=== PATIENT | female | born 2000 | race Caucasian/White ===

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

== ENCOUNTER 2018-07-04 14:31 | Emergency (ER) | payer BC ==
[2018-07-04 14:42] VITALS: RESP 18
[2018-07-04 15:21] LABS: Basophils # (A) 0.1 k/uL (0-0.2); Basophils % (A) 1 %; Eosinophils # (A) 0.3 k/uL (0-0.7); Eosinophils % (A) 4 %; HCT 39.6 % (34.0-46.0); HGB 13.3 gm/dL (11.4-16.0); Lymphocytes # (A) 1.9 k/uL (1.0-4.8); Lymphocytes % (A) 25 %; MCH 29.8 pg (25.0-35.0); MCHC 33.7 g/dL (31.0-37.0); MCV 88.5 fL (80.0-100.0); Monocytes # (A) 0.3 k/uL (0-1.0); Monocytes % (A) 5 %; Neutrophils # (A) 4.8 k/uL (1.3-7.7); Neutrophils % (A) 64 %; Platelet Count 270 k/uL (150-450); RBC 4.48 m/uL (3.80-5.40); RDW 13.1 % (11.5-15.5); WBC 7.5 k/uL (4.0-11.0)
[2018-07-04 15:29] LABS: Anion Gap 6 mmol/L; Blood Urea Nitrogen 13 mg/dL (7-17); Carbon Dioxide 26 mmol/L (22-30); Chloride 106 mmol/L (98-107); Glucose 76 mg/dL (74-99); Potassium 3.9 mmol/L (3.5-5.1); Sodium 138 mmol/L (137-145)
[2018-07-04 15:46] LABS: HCG,Quantitative Serum 271.1 mIU/mL
--- NOTE | 2018-07-04 15:58 | US ---
EXAMINATION TYPE: Transabdominal DATE OF EXAM: 07/04/2018 3:41 PM COMPARISON: NONE CLINICAL HISTORY: pain. Pt states cramping EXAM PERFORMED: TA and TV, endovaginal scanning performed for better evaluation of the uterus EXAM MEASUREMENTS: GESTATIONAL AGE / DATING Physician Established: No yet established Dates by LMP: (5 weeks/3 days) EDC: 03/03/2019 Dates by First Scan: No prior Dates by Current Scan for: Unable to date by today's study/ too early Correlate and follow-up as indicated. MATERNAL ANATOMY Uterus: 8.3 x 4.5 x 4.4 cm Right Ovary: 3.6 x 1.7 x 3.0 cm Left Ovary: 2.9 x 1.6 x 2.7 cm Post CDS / Adnexa: Small amount of free fluid anterior cul de sac Presence of corpus luteal cyst: Left Ovary= 1.6 x 1.4 x 1.6 cm Presence of subchorionic bleed: No GESTATION / SURVEY MSD: 0.2 cm Too early to calculate dates Date of LMP: 05/27/2018 Beta HcG (if available): Not available at this time IMPRESSION: Small cystic focus present along the endometrium. Findings may represent an early .
[2018-07-04 16:58] LABS: Appearance,Urine Cloudy (Clear); Bilirubin,Urine Negative (Negative); Blood,Urine Negative (Negative); Color,Urine Yellow; Glucose,Urine (UA) Negative (Negative); Ketones,Urine Negative (Negative); Leukocyte Esterase,Urine Small (Negative); Mucus,Urine Rare /hpf; Nitrite,Urine Negative (Negative); PH, Urine 6.5 (5.0-8.0); Protein,Urine Negative (Negative); Specific Gravity,Urine 1.024 (1.001-1.035); Squamous Epithelial Cell,Urine 16 /hpf (0-4); Urobilinogen,Urine <2.0 mg/dL (<2.0); WBC,Urine 4 /hpf (0-5)
--- NOTE | 2018-07-04 17:41 | ED ---
Abdominal Pain HPI - General Chief Complaint: Abdominal Pain Stated Complaint: Abd Pain Time Seen by Provider: 07/04/18 14:44 Source: patient Mode of arrival: ambulatory Limitations: no limitations - History of Present Illness Initial Comments: [id number] female presenting today for chief complaint of abdominal cramping. Patient states she, she is the day before. She states she has had cramping for the past 2-3 days. She states this began after taking a Plan B. She states she did not know she was . However had had unprotected sex. Patient denies any vaginal bleeding. She denies any vaginal discharge or pain with sex. Patient denies any fever chills night sweats dysuria or urgency frequency. Patient denies any back pain. Patient states she has had some nausea. She stopped admits to breast tenderness. Remaining review of systems negative. Upon arrival patient appears on the signs of acute distress. LMP mid may. - Related Data Previous Rx's Medication Instructions Recorded Amoxicillin/Potassium Clav 1 tab PO Q12HR #20 tab 11/27/16 [Augmentin 875-125 Tablet] Allergies Allergy/AdvReac Type Severity Reaction Status Date / Time ibuprofen [From Motrin] Allergy Anaphylaxis Verified 07/04/18 14:38 Review of Systems ROS Statement: Those systems with pertinent positive or pertinent negative responses have been documented in the HPI. ROS Other: All systems not noted in ROS Statement are negative. Past Medical History Past Medical History: No Reported History Additional Past Medical History / Comment(s): allergies History of Any Multi-Drug Resistant Organisms: None Reported Past Surgical History: No Surgical Hx Reported Past Psychological History: No Psychological Hx Reported Smoking Status: Former smoker Past Alcohol Use History: Occasional Past Drug Use History: None Reported General Exam - General Exam Comments Initial Comments: General: The patient is awake and alert, in no distress, and does not appear acutely ill. Eye: +3 mm pupils are equal, round and reactive to light, extra-ocular movements are intact. No nystagmus. There is normal conjunctiva bilaterally. No signs of icterus. Ears, nose, mouth and throat: There are moist mucous membranes and no oral lesions. Neck: The neck is supple, there is no tenderness or JVD. Cardiovascular: There is a regular rate and rhythm. No murmur, rub or gallop is appreciated. Respiratory: Lungs are clear to auscultation, respirations are non-labored, breath sounds are equal. No wheezes, stridor, rales, or rhonchi. Gastrointestinal: Soft, non-distended, non-tender abdomen without masses or organomegaly noted. There is no rebound or guarding present. No CVA tenderness. Bowel sounds are unremarkable. Pelvic exam:. No external lesions. [place] well rugated vaginal mucosa. Scant amount of light white discharge. No odor. No adnexal or cervical motion tenderness. Musculoskeletal: Normal ROM, no tenderness. Strength 5/5. Sensation intact. Pulses equal bilaterally 2+. Neurological: A&O x 3. CN II-XII intact, There are no obvious motor or sensory deficits. Coordination appears grossly intact. Speech is normal. Skin: Skin is warm and dry and no rashes or lesions are noted. Psychiatric: Cooperative, appropriate mood & affect, normal judgment. Limitations: no limitations Course Vital Signs 07/04/18 07/04/18 14:38 18:11 Temperature 98.7 F 98.0 F Pulse Rate 66 69 Respiratory 18 18 Rate Blood Pressure 120/77 118/73 O2 Sat by Pulse 100 99 Oximetry Medical Decision Making - Medical Decision Making 17 year female presenting for abdominal cramping and . Ultrasound revealed no signs of intrauterine at this time there is area suspicious for within the endometrium however this is not a confirmed IUP, however there is no evidence concerning for ectopic at this time. Patient hCG correlates with early . Unable to exclude ectopic at this time. However patient does not have any severe abdominal pain she states is mild cramping and there is no adnexal tenderness on examination. Patient has no vaginal bleeding. Patient's cramping began after taking Plan B. This time feel this is a threatened miscarriage. I discussed these findings with patient. I discussed how we cannot rule out ectopic at this time and the patient must repeat hCG and follow-up with DEVELOPMENTAL THERAPIST. Patient is to immediately return to emergency department for any increasing pain, vaginal bleeding. She verbalized understanding of the importance of strict return parameters. Patient was provided prescription for repeat hCG. Patient was given DEVELOPMENTAL THERAPIST follow-up. I discussed the case by attending provider Dr. Dyer was agreeable care plan as well as discharge. - Lab Data Result diagrams: 07/04/18 15:06 07/04/18 15:06 Lab Results 07/04/18 07/04/18 07/04/18 Range/Units 15:06 15:06 15:06 WBC 7.5 (4.0-11.0) k/uL RBC 4.48 (3.80-5.40) m/uL Hgb 13.3 (11.4-16.0) gm/dL Hct 39.6 (34.0-46.0) % MCV 88.5 (80.0-100.0) fL MCH 29.8 (25.0-35.0) pg MCHC 33.7 (31.0-37.0) g/dL RDW 13.1 (11.5-15.5) % Plt Count 270 (150-450) k/uL Neutrophils % 64 % Lymphocytes % 25 % Monocytes % 5 % Eosinophils % 4 % Basophils % 1 % Neutrophils # 4.8 (1.3-7.7) k/uL Lymphocytes # 1.9 (1.0-4.8) k/uL Monocytes # 0.3 (0-1.0) k/uL Eosinophils # 0.3 (0-0.7) k/uL Basophils # 0.1 (0-0.2) k/uL Sodium 138 (137-145) mmol/L Potassium 3.9 (3.5-5.1) mmol/L Chloride 106 (98-107) mmol/L Carbon Dioxide 26 (22-30) mmol/L Anion Gap 6 mmol/L BUN 13 (7-17) mg/dL Creatinine 0.64 (0.52-1.04) mg/dL Est GFR (CKD-EPI)AfAm >90 (>60 ml/min/1.73 sqM) Est GFR (CKD-EPI)NonAf >90 (>60 ml/min/1.73 sqM) Glucose 76 (74-99) mg/dL Calcium 10.0 (8.4-10.2) mg/dL HCG, Quant 271.1 mIU/mL Urine Color Urine Appearance (Clear) Urine pH (5.0-8.0) Ur Specific [place] (1.001-1.035) Urine Protein (Negative) Urine Glucose (UA) (Negative) Urine Ketones (Negative) Urine Blood (Negative) Urine Nitrite (Negative) Urine Bilirubin (Negative) Urine Urobilinogen (<2.0) mg/dL Ur Leukocyte Esterase (Negative) Urine WBC (0-5) /hpf Ur Squamous Epith Cells (0-4) /hpf Urine Mucus (None) /hpf Chlamydia Source Chlamydia DNA (PCR) (Neg,Equiv) N. gonorrhoeae Source N.gonorrhoeae DNA Probe (Neg,Equiv) Trichomonas Ag (Rapid) (Negative) Blood Type A Positive Blood Type Recheck No 07/04/18 07/04/18 07/04/18 Range/Units 15:06 15:06 15:06 WBC (4.0-11.0) k/uL RBC (3.80-5.40) m/uL Hgb (11.4-16.0) gm/dL Hct (34.0-46.0) % MCV (80.0-100.0) fL MCH (25.0-35.0) pg MCHC (31.0-37.0) g/dL RDW (11.5-15.5) % Plt Count (150-450) k/uL Neutrophils % % Lymphocytes % % Monocytes % % Eosinophils % % Basophils % % Neutrophils # (1.3-7.7) k/uL Lymphocytes # (1.0-4.8) k/uL Monocytes # (0-1.0) k/uL Eosinophils # (0-0.7) k/uL Basophils # (0-0.2) k/uL Sodium (137-145) mmol/L Potassium (3.5-5.1) mmol/L Chloride (98-107) mmol/L Carbon Dioxide (22-30) mmol/L Anion Gap mmol/L BUN (7-17) mg/dL Creatinine (0.52-1.04) mg/dL Est GFR (CKD-EPI)AfAm (>60 ml/min/1.73 sqM) Est GFR (CKD-EPI)NonAf (>60 ml/min/1.73 sqM) Glucose (74-99) mg/dL Calcium (8.4-10.2) mg/dL HCG, Quant mIU/mL Urine Color Yellow Urine Appearance Cloudy H (Clear) Urine pH 6.5 (5.0-8.0) Ur Specific [place] 1.024 (1.001-1.035) Urine Protein Negative (Negative) Urine Glucose (UA) Negative (Negative) Urine Ketones Negative (Negative) Urine Blood Negative (Negative) Urine Nitrite Negative (Negative) Urine Bilirubin Negative (Negative) Urine Urobilinogen <2.0 (<2.0) mg/dL Ur Leukocyte Esterase Small H (Negative) Urine WBC 4 (0-5) /hpf Ur Squamous Epith Cells 16 H (0-4) /hpf Urine Mucus Rare H (None) /hpf Chlamydia Source Vagina Chlamydia DNA (PCR) Negative (Neg,Equiv) N. gonorrhoeae Source Vagina N.gonorrhoeae DNA Probe Negative (Neg,Equiv) Trichomonas Ag (Rapid) Negative (Negative) Blood Type Blood Type Recheck Disposition Clinical Impression: Abdominal cramping affecting , Early stage of Disposition: HOME SELF-CARE Condition: Good Instructions (If sedation given, give patient instructions): Threatened Miscarriage (ED) Additional Instructions: Please use medication as discussed. Please follow-up with DEVELOPMENTAL THERAPIST within the next 1-2 weeks. Immediately return to the emergency department for worsening pain. Please repeat hCG as discussed in 2 days. Please return to emergency ro om if the symptoms increase or worsen or for any other concerns. Is patient prescribed a controlled substance at d/c from ED?: No Referrals: None,Stated [Primary Care Provider] - 1-2 days Ángel Love DO [Doctor of Osteopathic Medicine] - 1-2 days Time of Disposition: 17:52
[2018-07-04 18:12] VITALS: BP 118/73; PULSE 69; TEMP 98
[2018-07-05 16:18] LABS: C. trachomatis,PCR Negative (Neg,Equiv); Chlamydia trachomatis Source Vagina; N. gonorrhoeae,PCR Negative (Neg,Equiv); Neisseria Source Vagina
== END 2018-07-04 18:11 | disposition home or self-care (01) ==
LOC: EC 14:31
DX: O99.89 Other specified diseases and conditions complicating pregnancy, childbirth and the puerperium (principal); R10.9 Unspecified abdominal pain; R11.0 Nausea; Z87.891 Personal history of nicotine dependence; Z88.6 Allergy status to analgesic agent; Z3A.01 Less than 8 weeks gestation of pregnancy
CPT/HCPCS: 36415; 76801; 76817; 80048; 81001; 84702; 85025; 86900; 86901; 87070; 87205; 87491; 87591; 87808; 99284

== ENCOUNTER → 2018-07-06 | Outpatient (CLI) | payer BC | END | disposition home or self-care (01) | LOC: LABWHC1 15:59 | PROVIDERS: ATTEND Physician Assistant Medical | DX: O99.89 Other specified diseases and conditions complicating pregnancy, childbirth and the puerperium (principal); R10.9 Unspecified abdominal pain; R11.0 Nausea; Z3A.00 Weeks of gestation of pregnancy not specified | CPT/HCPCS: 36415; 84702 ==

== ENCOUNTER → 2018-07-14 | Outpatient (CLI) | payer BC | END | disposition home or self-care (01) | LOC: LABWHC1 11:46 | PROVIDERS: ATTEND Obstetrics & Gynecology Obstetrics | DX: O20.0 Threatened abortion (principal) | CPT/HCPCS: 36415; 84702 ==

== ENCOUNTER → 2018-07-16 | Outpatient (CLI) | payer BC | END | disposition home or self-care (01) | LOC: LABWHC1 10:58 | PROVIDERS: ATTEND Obstetrics & Gynecology Obstetrics | DX: O20.0 Threatened abortion (principal); Z3A.00 Weeks of gestation of pregnancy not specified | CPT/HCPCS: 36415; 84702 ==

== ENCOUNTER 2021-06-28 15:02 | Emergency (ER) | payer BC, OTHER ==
[2021-06-28 16:39] LABS: Basophils # (A) 0.1 k/uL (0-0.2); Basophils % (A) 0 %; Eosinophils # (A) 0.2 k/uL (0-0.7); Eosinophils % (A) 1 %; HCT 41.7 % (34.0-46.0); HGB 13.9 gm/dL (11.4-16.0); Lymphocytes # (A) 0.6 k/uL (1.0-4.8); Lymphocytes % (A) 3 %; MCH 29.4 pg (25.0-35.0); MCHC 33.2 g/dL (31.0-37.0); MCV 88.4 fL (80.0-100.0); Mean Platelet Volume 7.5; Monocytes # (A) 0.6 k/uL (0-1.0); Monocytes % (A) 4 %; Neutrophils # (A) 15.8 k/uL (1.3-7.7); Neutrophils % (A) 91 %; Platelet Count 219 k/uL (150-450); RBC 4.72 m/uL (3.80-5.40); RDW 13.1 % (11.5-15.5); WBC 17.4 k/uL (3.8-10.6)
[2021-06-28 17:02] LABS: ALT 32 U/L (4-34); AST 33 U/L (14-36); African American GFR (CKD) >90 (>60 ml/min/1.73 sqM); Albumin 5.1 g/dL (3.5-5.0); Alkaline Phosphatase 96 U/L (38-126); Amylase 47 U/L (30-110); Anion Gap 9 mmol/L; Blood Urea Nitrogen 19 mg/dL (7-17); Calcium 9.3 mg/dL (8.4-10.2); Carbon Dioxide 24 mmol/L (22-30); Chloride 103 mmol/L (98-107); Glucose 108 mg/dL (74-99); Lipase 21 U/L (23-300); Non-African American GFR(CKD) 89 (>60 ml/min/1.73 sqM); Potassium 3.9 mmol/L (3.5-5.1); Sodium 136 mmol/L (137-145); Total Bilirubin 1.1 mg/dL (0.2-1.3); Total Protein 8.4 g/dL (6.3-8.2)
[2021-06-28] MEDS ORDERED: ACETAMINOPHEN TAB 325 MG TAB PO STA ×2 (18:52→23:05)
[2021-06-28] MEDS ORDERED: SODIUM CHLORIDE 0.9% 1,000 ML IV ONE ×2 (18:54→21:00)
[2021-06-28] MEDS ORDERED: ONDANSETRON 4 MG/2 ML VIAL IVP STA (18:54)
--- NOTE | 2021-06-28 19:23 | ED ---
General Adult HPI - General Chief complaint: Nausea/Vomiting/Diarrhea Stated complaint: Vomiting,neck pain Time Seen by Provider: 06/28/21 18:16 Source: patient Mode of arrival: ambulatory Limitations: no limitations - History of Present Illness Initial comments: Patient is a 20-year-old female presenting with multiple complaints. Patient admits to nausea, vomiting, right-sided neck pain, fever, and low back pain. Patient states that symptoms all began today. She also admits to left breast tenderness, states that she has had a clogged duct for several days now, she sought out treatment earlier today and started doxycycline today. She denies chest pain, shortness of breath, pelvic pain, vaginal bleeding or discharge, saddle paresthesia, lower extremity weakness, numbness, tingling, loss of bowel or bladder control, palpitations, headache, confusion, vision or hearing changes, sore throat, cough, dysuria, hematuria, urgency, frequency. - Related Data Home Medications Medication Instructions Recorded Confirmed Dicloxacillin [Dynapen] 500 mg PO Q6H 06/28/21 06/28/21 Allergies Allergy/AdvReac Type Severity Reaction Status Date / Time ibuprofen [From Motrin] Allergy Anaphylaxis Verified 06/28/21 20:18 Review of Systems ROS Statement: Those systems with pertinent positive or pertinent negative responses have been documented in the HPI. ROS Other: All systems not noted in ROS Statement are negative. Past Medical History Past Medical History: No Reported History Additional Past Medical History / Comment(s): allergies History of Any Multi-Drug Resistant Organisms: None Reported Past Surgical History: No Surgical Hx Reported Past Psychological History: No Psychological Hx Reported Smoking Status: Never smoker Past Alcohol Use History: Occasional Past Drug Use History: None Reported General Exam Limitations: no limitations General appearance: alert, in no apparent distress Head exam: Present: atraumatic, normocephalic, normal inspection Eye exam: Present: normal appearance, EOMI. Absent: scleral icterus Neck exam: Present: normal inspection, full ROM. Absent: tenderness, meningismus Respiratory exam: Present: normal lung sounds bilaterally. Absent: respiratory distress, wheezes, rales, rhonchi, stridor Cardiovascular Exam: Present: regular rate, normal rhythm, normal heart sounds. Absent: systolic murmur, diastolic murmur, rubs, gallop, clicks GI/Abdominal exam: Present: soft, normal bowel sounds. Absent: distended, tenderness, guarding, rebound, rigid Back exam: Present: normal inspection Neurological exam: Present: alert, oriented X3, CN II-XII intact Psychiatric exam: Present: normal affect, normal mood Skin exam: Present: warm, dry, intact, normal color. Absent: rash Course Vital Signs 06/28/21 06/28/21 06/28/21 16:01 18:34 22:40 Temperature 100.2 F H 99.6 F 98.9 F Pulse Rate 117 H 84 Respiratory 18 20 Rate Blood Pressure 115/61 113/74 O2 Sat by Pulse 96 99 Oximetry 06/29/21 00:56 Temperature Pulse Rate 103 H Respiratory 24 Rate Blood Pressure 115/61 O2 Sat by Pulse 97 Oximetry - Reevaluation(s) Reevaluation #1: On reassessment patient states she is feeling somewhat better. Temperature is 98.9. Heart rate is 84. Blood pressure is 113/74. O2 saturation is 99% on room air. 06/28/21 23:33 Medical Decision Making - Medical Decision Making Patient is a 20-year-old female presenting with chief complaint of nausea, vomiting, fever. Patient states that symptoms began today, also accompanied by congestion, right-sided neck pain, fatigue. She started antibiotic treatment for a clogged duct in her breast that she has had for several weeks now. On exam patient is tachycardic at 117 and afebrile at 100.2. She is given fluids and Tylenol. Abdomen is soft, nontender, nondistended with normal bowel sounds in all 4 quadrants. The right breast is tender on the lateral side, there is a distinct area of firmness, no obvious redness. Laboratory is positive for leukocytosis with WBC of 17.4. BUN is elevated at 19 and urine is positive for 4+ ketones, likely indicative of dehydration. Patient is negative for coronavirus and influenza. KUB x-ray is negative. Breast ultrasound is ordered. It is unremarkable. Patient was given a dose of Keflex while here in the ER as well as Tylenol for fever control. These findings were discussed with my attending Dr. Lawton, he advised discharge with outpatient follow-up at this time. Patient was instructed to continue taking her dicloxacillin as prescribed. I instructed her on using warm compresses and moist he for symptomatic relief. Continue taking Tylenol every 4 hours for fever control. Follow up with PCP and ENG[employer]IC provided and discharge papers. Report back to ER with any worsening symptoms. Discussed return parameters and alarm symptoms. Patient conveyed verbal understanding and agreed to the plan. I discussed this case informed this plan of my attending Dr. Lawton - Lab Data Result diagrams: 06/28/21 16:20 06/28/21 16:20 Lab Results 06/28/21 06/28/21 06/28/21 Range/Units 16:05 16:05 16:20 WBC 17.4 H (3.8-10.6) k/uL RBC 4.72 (3.80-5.40) m/uL Hgb 13.9 (11.4-16.0) gm/dL Hct 41.7 (34.0-46.0) % MCV 88.4 (80.0-100.0) fL MCH 29.4 (25.0-35.0) pg MCHC 33.2 (31.0-37.0) g/dL RDW 13.1 (11.5-15.5) % Plt Count 219 (150-450) k/uL MPV 7.5 Neutrophils % 91 % Lymphocytes % 3 % Monocytes % 4 % Eosinophils % 1 % Basophils % 0 % Neutrophils # 15.8 H (1.3-7.7) k/uL Lymphocytes # 0.6 L (1.0-4.8) k/uL Monocytes # 0.6 (0-1.0) k/uL Eosinophils # 0.2 (0-0.7) k/uL Basophils # 0.1 (0-0.2) k/uL Sodium (137-145) mmol/L Potassium (3.5-5.1) mmol/L Chloride (98-107) mmol/L Carbon Dioxide (22-30) mmol/L Anion Gap mmol/L BUN (7-17) mg/dL Creatinine (0.52-1.04) mg/dL Est GFR (CKD-EPI)AfAm (>60 ml/min/1.73 sqM) Est GFR (CKD-EPI)NonAf (>60 ml/min/1.73 sqM) Glucose (74-99) mg/dL Plasma Lactic Acid Tom[place] (0.7-2.0) mmol/L Calcium (8.4-10.2) mg/dL Total Bilirubin (0.2-1.3) mg/dL AST (14-36) U/L ALT (4-34) U/L Alkaline Phosphatase (38-126) U/L Total Protein (6.3-8.2) g/dL Albumin (3.5-5.0) g/dL Amylase (30-110) U/L Lipase (23-300) U/L Urine Color Urine Appearance (Clear) Urine pH (5.0-8.0) Ur Specific [place] (1.001-1.035) Urine Protein (Negative) Urine Glucose (UA) (Negative) Urine Ketones (Negative) Urine Blood (Negative) Urine Nitrite (Negative) Urine Bilirubin (Negative) Urine Urobilinogen (<2.0) mg/dL Ur Leukocyte Esterase (Negative) Urine RBC (0-5) /hpf Urine WBC (0-5) /hpf Ur Squamous Epith Cells (0-4) /hpf Urine Mucus (None) /hpf Coronavirus (PCR) Not Detected (Not Detectd) Influenza Type A RNA Not Detected (Not Detectd) Influenza Type B (PCR) Not Detected (Not Detectd) 06/28/21 06/28/21 06/28/21 Range/Units 16:20 16:20 20:08 WBC (3.8-10.6) k/uL RBC (3.80-5.40) m/uL Hgb (11.4-16.0) gm/dL Hct (34.0-46.0) % MCV (80.0-100.0) fL MCH (25.0-35.0) pg MCHC (31.0-37.0) g/dL RDW (11.5-15.5) % Plt Count (150-450) k/uL MPV Neutrophils % % Lymphocytes % % Monocytes % % Eosinophils % % Basophils % % Neutrophils # (1.3-7.7) k/uL Lymphocytes # (1.0-4.8) k/uL Monocytes # (0-1.0) k/uL Eosinophils # (0-0.7) k/uL Basophils # (0-0.2) k/uL Sodium 136 L (137-145) mmol/L Potassium 3.9 (3.5-5.1) mmol/L Chloride 103 (98-107) mmol/L Carbon Dioxide 24 (22-30) mmol/L Anion Gap 9 mmol/L BUN 19 H (7-17) mg/dL Creatinine 0.92 (0.52-1.04) mg/dL Est GFR (CKD-EPI)AfAm >90 (>60 ml/min/1.73 sqM) Est GFR (CKD-EPI)NonAf 89 (>60 ml/min/1.73 sqM) Glucose 108 H (74-99) mg/dL Plasma Lactic Acid Tom[place] 0.8 (0.7-2.0) mmol/L Calcium 9.3 (8.4-10.2) mg/dL Total Bilirubin 1.1 (0.2-1.3) mg/dL AST 33 (14-36) U/L ALT 32 (4-34) U/L Alkaline Phosphatase 96 (38-126) U/L Total Protein 8.4 H (6.3-8.2) g/dL Albumin 5.1 H (3.5-5.0) g/dL Amylase 47 (30-110) U/L Lipase 21 L (23-300) U/L Urine Color Yellow Urine Appearance Clear (Clear) Urine pH 5.5 (5.0-8.0) Ur Specific [place] 1.024 (1.001-1.035) Urine Protein 1+ H (Negative) Urine Glucose (UA) Negative (Negative) Urine Ketones 4+ H (Negative) Urine Blood Small H (Negative) Urine Nitrite Negative (Negative) Urine Bilirubin Negative (Negative) Urine Urobilinogen <2.0 (<2.0) mg/dL Ur Leukocyte Esterase Negative (Negative) Urine RBC 1 (0-5) /hpf Urine WBC 3 (0-5) /hpf Ur Squamous Epith Cells 2 (0-4) /hpf Urine Mucus Occasional H (None) /hpf Coronavirus (PCR) (Not Detectd) Influenza Type A RNA (Not Detectd) Influenza Type B (PCR) (Not Detectd) Disposition Clinical Impression: Mastitis Disposition: HOME SELF-CARE Condition: Good Instructions (If sedation given, give patient instructions): Mastitis (ED) Additional Instructions: Continue taking Tylenol at home for fever control. Continue breast-feeding, warm compresses or warm heat may help. Continue taking antibiotic as prescribed. Report back to ER with any worsening symptoms. Is patient prescribed a controlled substance at d/c from ED?: No Referrals: Inés De La Cruz MD [STAFF PHYSICIAN] - 1-2 days Nancy Woody DO [Doctor of Osteopathic Medicine] - 1-2 days Time of Disposition: 00:56
--- NOTE | 2021-06-28 20:36 | XR ---
EXAM: Abdomen radiograph. HISTORY: Pain and fever. TECHNIQUE: Supine and upright AP views. COMPARISON: None available FINDINGS: There are nondilated bowel loops with a nonobstructive pattern. There are no pathologic calcification s. No acute osseous abnormality seen. No pneumoperitoneum. There is small to moderate amount of stool throughout the colon. IMPRESSION: No acute process.
[2021-06-28 21:05] LABS: Appearance,Urine Clear (Clear); Bilirubin,Urine Negative (Negative); Blood,Urine Small (Negative); Color,Urine Yellow; Glucose,Urine (UA) Negative (Negative); Ketones,Urine 4+ (Negative); Leukocyte Esterase,Urine Negative (Negative); Mucus,Urine Occasional /hpf; Nitrite,Urine Negative (Negative); PH, Urine 5.5 (5.0-8.0); Protein,Urine 1+ (Negative); RBC,Urine 1 /hpf (0-5); Specific Gravity,Urine 1.024 (1.001-1.035); Squamous Epithelial Cell,Urine 2 /hpf (0-4); Urobilinogen,Urine <2.0 mg/dL (<2.0); WBC,Urine 3 /hpf (0-5)
[2021-06-28 22:43] VITALS: TEMP 98.9
[2021-06-29] MEDS ORDERED: cefTRIAXone IN SWFI 1,000 MG/10 ML SYRINGE IVP STA (00:40)
[2021-06-29] MEDS ORDERED: ACETAMINOPHEN TAB 325 MG TAB PO STA (00:43)
[2021-06-29 00:56] VITALS: BP 115/61; PULSE 103; RESP 24
--- NOTE | 2021-06-30 09:10 | USB ---
Reason for Exam: Clinical finding. Findings: EXAMINATION TYPE: US breast complete LT DATE OF EXAM: 06/28/2021 COMPARISON: NONE CLINICAL HISTORY: mastitis . Left breast pain x 2 days. Patient states she thought she had a clogged duct x 2 days ago but fixed it. Patient has been x 8 months. No palpable abnormality. Left breast scanned. Ducts visualized. No prominent masses or lesions identified at time of scan. IMPRESSION: Normal left breast sonogram exam. No solid or cystic mass identified. Category 1 negative. Overall Assessment: Negative, BI-RAD 1 Management: Screening Mammogram of both breasts at age 38. Electronically signed and approved by: Anival Cortez M.D. Radiologist
== END 2021-06-29 01:36 | disposition home or self-care (01) ==
LOC: EC 15:02
DX: N61.0 Mastitis without abscess (principal); Z88.6 Allergy status to analgesic agent
CPT/HCPCS: 36415; 80053; 82150; 83605; 83690; 85025; 81001; 87502; 87635; 74018; 76641; 99284; 96374; 96375; 96361; J2405

== ENCOUNTER 2024-02-27 13:44 | Outpatient (CLI) | payer OTHER ==
[2024-02-27 14:47] VITALS: BP 117/69; PULSE 78; RESP 16; TEMP 97.9
== END 2024-02-27 14:16 | disposition home or self-care (01) ==
LOC: FBPOP 13:44
PROVIDERS: ATTEND Obstetrics & Gynecology
DX: Z53.9 Procedure and treatment not carried out, unspecified reason (principal)
CPT/HCPCS: 59025; 84112; 99213

== ENCOUNTER 2024-03-05 21:35 | Outpatient (CLI) | payer OTHER ==
[2024-03-05 22:21] LABS: Appearance,Urine Clear (Clear); Bilirubin,Urine Negative (Negative); Blood,Urine Negative (Negative); Color,Urine Colorless; Glucose,Urine (UA) Negative (Negative); Ketones,Urine Negative (Negative); Leukocyte Esterase,Urine Negative (Negative); Nitrite,Urine Negative (Negative); Protein,Urine Negative (Negative); Specific Gravity,Urine 1.012 (1.001-1.035); Urobilinogen,Urine <2.0 mg/dL (<2.0)
[2024-03-06 00:02] VITALS: BP 120/74; PULSE 77; RESP 16; TEMP 97.7
--- NOTE | 2024-04-07 23:42 | P.MSEPDOC ---
Presenting Problems - Arrival Data Date of Arrival on Unit: 03/05/24 Time of Arrival on Unit: 21:35 Mode of Transport: Ambulatory - Complaint OB-Reason for Admission/Chief Complaint: Possible Onset of Labor Comment: Patient presents to triage with complaints of contractions about every 10 minutes apart, rating pain with contractions 4-5/10. Patient complains of constant back pain. Medical History - Information : 3 Para: 1 Term: 1 : 0 Abortions: Spontaneous or Elective: 1 Number of Living Children: 1 - Gestational Age Gestational Age by KELLIE (wks/days): 38 Weeks and 6 Days Review of Systems - Review of Systems Constitutional: No problems Breast: No problems ENT: No problems Cardiovascular: No problems Respiratory: No problems Gastrointestinal: No problems Genitourinary: No problems Musculoskeletal: No problems Neurological: No problems Skin: No problems Vital Signs - Temperature Temperature: 97.7 F Temperature Source: Temporal Artery Scan - Pulse Pulse Oximetery Pulse Rate: 77 Pulse Assessment Method: Pulse Oximetry - Respirations Respiratory Rate: 16 Oxygen Delivery Method: Room Air O2 Sat by Pulse Oximetry: 99 - Blood Pressure Right Arm Blood Pressure: 120/74 Blood Pressure Mean: 89 Blood Pressure Source: Automatic Cuff Medical Screen Scoring - Cervical Exam Dilation (cm): 1.5 Effacement (%): 60 Station: -2 Membranes: Intact - Uterine Contractions Frequency From (mins): 6 Frequency To (mins): 12 Duration From (seconds): 60 Duration To (seconds): 100 Intensity: Moderate Resting: Soft to palpation - Assessment - Baby A Baseline FHR: 135 Heart Rate - NICHD Category: Category I (Normal) NST: Reactive Physician Notification - Physician Notified Physician Notified Date: 03/05/24 Physician Notified Time: 21:49 Physician: Deny Gómez - Notification Comment Comment: At 2148, RN spoke with Dr. Gómez regarding triage pt c/o irregular contx since 1830 and constant back pain. Reported pt rating pain 4-5/10, grecia 1 FHT, irregular contx, cervical exam of 1.5/60/-2. Order received to send urinalysis, recheck cervix after an hour and if cervix remains unchanged and urinalysis is WNL, pt can be discharged home. At 2250, Reported cervical exam has remained the same of 1.5/60/-2, irregular contx with some irritability in between some, urinalysis WNL, but pt states that she is still having severe back pain all over which is how it felt right before she went into labor with her previous daughter. Order received to offer to keep pt an additional hour and monitor, if no cervical change, discharge pt home. Maternal Triage Index - Maternal Triage Index Presenting for scheduled procedure w/no complaint: No - Stat/Priority 1 Stat Priority 1: No - Urgent/Priority 2 Urgent Priority 2: No - Prompt/Priority 3 Prompt Priority 3: No - Non-Urgent/Priority 4 Non-Urgent Priority 4: Yes Criteria Met for Priority 4: > 37 weeks early labor signs Disposition - Disposition OB Disposition: Discharge to home, Written follow up instructions reviewed Discharge Date: 03/05/24 Discharge Time: 23:52 I agree with the RN Medical Screening Exam: Yes Physician's MSE Comment: I have neither seen nor examined the patient. Case reviewed; plan agreed upon as documented in EMR&OBIX.: Yes Diagnosis: RELATED CONDITIONS, UNSPECIFIED, THIRD TRIMESTER
== END 2024-03-05 23:52 | disposition home or self-care (01) ==
LOC: FBPOP 21:35
PROVIDERS: ATTEND Obstetrics & Gynecology
DX: O26.93 Pregnancy related conditions, unspecified, third trimester (principal); Z3A.38 38 weeks gestation of pregnancy; Z87.891 Personal history of nicotine dependence; Z88.6 Allergy status to analgesic agent
CPT/HCPCS: 59025; 81003; 99213

== ENCOUNTER 2024-03-08 06:00 | Inpatient (IN) | payer OTHER ==
[2024-03-08] MEDS ORDERED: METHYLERGONOVINE 0.2 MG/ML 1 ML AMP IM PRN (06:11)
[2024-03-08] MEDS ORDERED: CARBOPROST TROMETHAMINE 250 MCG/ML 1 ML AMP IM PRN (06:11)
[2024-03-08] MEDS ORDERED: TRANEXAMIC 1,000 MG/100ML-NACL 1,000 MG in EMPTY BAG 1 BAG IV PRN (06:11)
[2024-03-08] MEDS ORDERED: TERBUTALINE 1 MG/ML VIAL SQ PRN (06:11)
[2024-03-08] MEDS ORDERED: OXYTOCIN 10 UNIT/ML 1 ML VIAL IM PRN (06:11)
[2024-03-08] MEDS ORDERED: LIDOCAINE 0.5% (PF) 5 MG/ML (50 ML SDV) SQ PRN (06:11)
[2024-03-08] MEDS ORDERED: miSOPROStoL 200 MCG TAB RECTAL PRN (06:11)
[2024-03-08] MEDS ORDERED: miSOPROStoL 200 MCG TAB PO PRN (06:11)
[2024-03-08] MEDS: LACTATED RINGERS 1,000 ML IV SCH (06:28)
[2024-03-08] MEDS: PENICILLIN G POTASSIUM 5,000,000 UNIT in DEXTROSE 5% IN WATER 100 ML IVPB ONE (06:28)
[2024-03-08] MEDS: OXYTOCIN 30 UNITS/500 ML NS 30 UNIT in SALINE 1 500ML.BAG IV SCH (06:42)
[2024-03-08 07:09] LABS: Basophils # (A) 0.1 k/uL (0-0.2); Basophils % (A) 1 %; Eosinophils # (A) 0.1 k/uL (0-0.7); Eosinophils % (A) 1 %; HCT 27.4 % (34.0-46.0); HGB 8.9 gm/dL (11.4-16.0); Hypochromasia Slight; Lymphocytes # (A) 1.8 k/uL (1.0-4.8); Lymphocytes % (A) 25 %; MCH 25.3 pg (25.0-35.0); MCHC 32.5 g/dL (31.0-37.0); MCV 77.9 fL (80.0-100.0); Mean Platelet Volume 7.7; Monocytes # (A) 0.4 k/uL (0-1.0); Monocytes % (A) 6 %; Neutrophils # (A) 4.6 k/uL (1.3-7.7); Neutrophils % (A) 65 %; Platelet Count 246 k/uL (150-450); Poikilocytosis Slight; RBC 3.52 m/uL (3.80-5.40); RDW 14.4 % (11.5-15.5); WBC 7.1 k/uL (3.8-10.6)
--- NOTE | 2024-03-08 08:34 | P.HPOB ---
History of Present Illness H&P Date: 03/08/24 Chief Complaint: Elective induction of labor Ms. Olivares is a 23 year old at 39 weeks and 2 days gestation with EDC of 03/13/2024 by LMP consistent with 9 week US who presents for elective induction of labor. Her has been essentially uncomplicated. The fetus is estimated in the 27%ile based on a 32 week growth US. Obstetric history: 1 FTVD, IOL for post-dates, complicated by PPH, female 7#12 (2020); 1 SAB work-up: blood type A positive, antibody screen negative, rubella immune, VDRL non-reactive, HBsAg negative, HIV negative, HCV Ab non-reactive, gonorrhea negative, chlamydia negative, 1 hour GTT abnormal > 3 hour GTT wnl, GBS positive. s/p flu vaccine and TDap. Past Medical History Past Medical History: No Reported History Additional Past Medical History / Comment(s): allergies History of Any Multi-Drug Resistant Organisms: None Reported Past Surgical History: No Surgical Hx Reported Past Anesthesia/Blood Transfusion Reactions: No Reported Reaction Past Psychological History: No Psychological Hx Reported Smoking Status: Never smoker Past Alcohol Use History: Occasional Past Drug Use History: None Reported - Past Family History Mother Family Medical History: Cancer, Diabetes Mellitus Medications and Allergies Home Medications Medication Instructions Recorded Confirmed Type Omeprazole [PriLOSEC] 10 mg PO DAILY 02/27/24 03/08/24 History Ondansetron [Ondansetron ODT] 1 tab PO DAILY 02/27/24 03/08/24 History Vit No.179/Iron/Folic 1 tab PO DAILY 02/27/24 03/08/24 History [ Tablet] Allergies Allergy/AdvReac Type Severity Reaction Status Date / Time ibuprofen [From Motrin] Allergy Rash/Hives Verified 03/05/24 21:40 Exam Vital Signs Temp Pulse Resp BP Pulse Ox 03/08/24 06:08 97.9 F 67 16 101/61 98 Intake and Output 03/07/24 03/08/24 03/08/24 22:59 06:59 14:59 Other: Weight 58.967 kg Focused physical exam is performed. This is a healthy-appearing in no apparent distress. Breathing is non-labored. Abdomen is gravid and non-tender. Cervical exam is 3/80/-2. AROM is undertaken with clear fluid noted. Extremities non-tender and non-edematous. heart tones are Category I and tocometer is graphing contractions every 2-4 minutes. Results Result Diagrams: 03/08/24 06:15 Abnormal Lab Results - Last 24 Hours (Table) 03/08/24 Range/Units 06:15 RBC 3.52 L (3.80-5.40) m/uL Hgb 8.9 L (11.4-16.0) gm/dL Hct 27.4 L (34.0-46.0) % MCV 77.9 L (80.0-100.0) fL Assessment and Plan Assessment: 23 year old at 39 weeks and 2 days presenting for elective induction Plan: Admit, clear liquid diet, Pen G for GBS ppx, pitocin per protocol, epidural prn, continuous EFM and tocometer. Anticipate vaginal delivery.
[2024-03-08] MEDS: PENICILLIN G POTASSIUM 2,500,000 UNIT in DEXTROSE 5% IN WATER 100 ML IVPB SCH (11:16)
[2024-03-08] MEDS ORDERED: SODIUM CHLORIDE 0.9% 250 ML BAG ONE (12:11)
[2024-03-08] MEDS ORDERED: fentaNYL (PF) 50 MCG/ML 5 ML AMP ONE (12:11)
[2024-03-08] MEDS ORDERED: ROPIVACAINE 5 MG/ML 30 ML VIAL ONE (12:11)
[2024-03-08] MEDS ORDERED: ZOLPIDEM 5 MG TAB PO PRN (15:10)
[2024-03-08] MEDS ORDERED: diphenhydrAMINE 50 MG/ML 1 ML VIAL IVP PRN ×2 (15:10)
[2024-03-08] MEDS ORDERED: LANOLIN CREAM 1 GM TUBE TOPICAL PRN (15:10)
[2024-03-08] MEDS ORDERED: SIMETHICONE 80 MG CHEWABLE PO PRN (15:10)
[2024-03-08] MEDS ORDERED: diphenhydrAMINE 50 MG CAP PO PRN (15:10)
[2024-03-08] MEDS ORDERED: HYDROCORTISONE 2.5% RECTAL CREAM 30 GM TUBE RECTAL PRN (15:10)
[2024-03-08] MEDS ORDERED: BENZOCAINE/MENTHOL SPRAY 1 GM/SPRAY AEROSOL TOPICAL PRN (15:10)
[2024-03-08] MEDS ORDERED: diphenhydrAMINE 25 MG CAP PO PRN (15:10)
--- NOTE | 2024-03-08 15:10 | P.PROBDLV ---
Vaginal Delivery Note - . Vaginal Delivery Note: DATE OF SERVICE: 03/08/2024 PROCEDURE: Normal Vaginal Delivery ATTENDING: Dr. Nadiya Zamorano MD ESTIMATED BLOOD LOSS: 200 mL FINDINGS: VFI, Apgars 9/9. Weight 7 pounds and 0 ounces (3200 grams) PROCEDURE: Ms. Olivares is a 23 year old at 39 weeks and 2 days gestation presenting to labor and delivery for elective induction of labor. The has been complicated by essentially uncomplicated. For further details, please review the admitting H&P. Pitocin was titrated per protocol. AROM was undertaken at 815 revealing clear amniotic fluid. She received epidural anesthesia per her request. The patient was completely dilated and pushed effectively with Category I heart tones. A viable female was delivered at 1455 over an intact perineum. The was placed on the maternal abdomen and bulb suctioned. The was noted to be spontaneously crying. Cord was clamped and cut after a 30-second delay. The infant was handed off to the pediatric team. Placenta was delivered whole with gentle cord traction. Oxytocin was started to facilitate uterine tone. Uterine fundus was found to be firm and below the umbilicus upon fundal massage. Thorough examination of the cervix, vagina, periurethral area, and perineum revealed no lacerations. The patient is stable and allowed to begin the bonding process.
[2024-03-08] MEDS: ACETAMINOPHEN TAB 500 MG TAB PO SCH (16:05)
[2024-03-08] MEDS: IBUPROFEN 800 MG TAB PO SCH (16:08)
[2024-03-08] MEDS: SENNOSIDES-DOCUSATE SODIUM 1 EACH TAB PO SCH (20:47)
[2024-03-09 05:17] LABS: Basophils % (A) 0 %; Eosinophils # (A) 0.1 k/uL (0-0.7); Eosinophils % (A) 1 %; HCT 27.3 % (34.0-46.0); HGB 9.2 gm/dL (11.4-16.0); Hypochromasia Slight; Lymphocytes # (A) 1.8 k/uL (1.0-4.8); Lymphocytes % (A) 22 %; MCH 26.2 pg (25.0-35.0); MCHC 33.6 g/dL (31.0-37.0); MCV 77.8 fL (80.0-100.0); Mean Platelet Volume 8.8; Monocytes # (A) 0.4 k/uL (0-1.0); Monocytes % (A) 5 %; Neutrophils # (A) 5.8 k/uL (1.3-7.7); Neutrophils % (A) 70 %; Platelet Count 226 k/uL (150-450); Poikilocytosis Slight; RBC 3.51 m/uL (3.80-5.40); RDW 14.5 % (11.5-15.5); WBC 8.3 k/uL (3.8-10.6)
--- NOTE | 2024-03-09 08:13 | P.DS ---
Providers Date of admission: 03/08/24 06:00 Expected date of discharge: 03/09/24 Attending physician: Nadiya Zamorano MD Primary care physician: Stated None Hospital Course: Ms. Olivares is a 23 year old PPD#1 s/p after elective induction of labor at 39+ weeks. The patient is doing well this morning and had no acute events overnight. She has no complaints this morning. She reports minimal lochia, passing flatus, voiding without difficulty, ambulating, and eating/drinking without nausea or vomiting. doing well at bedside. She denies chest pain, shortness of breathing, fevers, or chills overnight. She denies pain or swelling in the legs. restrictions are reviewed with the patient including pelvic rest for 6 weeks. The patient is encouraged to call the office if she experiences any heavy bleeding, foul-smelling discharge, breast complaints, or any if she has any other concerns. She will follow up in the office with in 6 weeks for exam. She plans to use Tylenol OTC as needed for pain. All questions are answered. Assessment: 23 year old now PPD#1 s/p Patient Condition at Discharge: Good Plan - Discharge Summary New Discharge Prescriptions: No Action Ondansetron [Ondansetron ODT] 1 tab PO DAILY Omeprazole [PriLOSEC] 10 mg PO DAILY Vit No.179/Iron/Folic [ Tablet] 1 tab PO DAILY Discharge Medication List Omeprazole [PriLOSEC] 10 mg PO DAILY 02/27/24 [History] Ondansetron [Ondansetron ODT] 1 tab PO DAILY 02/27/24 [History] Vit No.179/Iron/Folic [ Tablet] 1 tab PO DAILY 02/27/24 [History] Follow up Appointment(s)/Referral(s): Nadiya Zamorano MD [STAFF PHYSICIAN] - 04/18/24 11:15 am Activity/Diet/Wound Care/Special Instructions: Instructions 1. Do not begin any exercise program for 3 weeks. 2. Do not resume sexual relations for 6 weeks or longer if uncomfortable. 3. You may take tub baths or showers at any time. 4. You may use tampons if desired after 6 weeks. 5. Keep any areas repaired with stitches clean and dry. 6. If you are not nursing, wear a good fitting, supportive bra during the day and limit fluid intake for at least 1 week to prevent breast engorgement. 7. Call the office, , within the next week to make appointment for your 6 week checkup if it has not already been made. 8. Report any of the following occurrences to the doctor promptly: a. Heavy, excessive bleeding b. Chills, fever c. Burning or frequency of urination d. Pain or redness and breasts if nursing e. Increasing pain or swelling of vulva (stitches). In addition to the above instructions, the following additional should be followed: 1. No heavy lifting or straining (exercising) until after 6 week checkup. 2. Keep abdominal incision clean and dry: You may wear a dressing if more co mfortable. 3. Make office appointment for 2 weeks after delivery date. Discharge Disposition: HOME SELF-CARE
[2024-03-09 08:14] VITALS: RESP 17
[2024-03-09] MEDS: LIDOCAINE 4% PATCH TOPICAL SCH (08:54)
[2024-03-09 12:18] VITALS: BP 123/73; PULSE 65; TEMP 97.9
== END 2024-03-09 15:20 | disposition home or self-care (01) | DRG 807 ==
LOC: 4FBP 06:00
PROVIDERS: ADMIT Obstetrics & Gynecology; ATTEND Obstetrics & Gynecology
PROC: 10907ZC Drainage of Amniotic Fluid, Therapeutic from Products of Conception, Via Natural or Artificial Opening (ICD-10-PCS; principal; 2024-03-08)
PROC: 10E0XZZ Delivery of Products of Conception, External Approach (ICD-10-PCS; principal; 2024-03-08)
PROC: 3E033VJ Introduction of Other Hormone into Peripheral Vein, Percutaneous Approach (ICD-10-PCS; principal; 2024-03-08)
DX: O99.824 Streptococcus B carrier state complicating childbirth (principal); Z88.6 Allergy status to analgesic agent; Z79.899 Other long term (current) drug therapy; Z3A.39 39 weeks gestation of pregnancy; Z37.0 Single live birth
CPT/HCPCS: 85025; 86850; 86900; 86901